=== PATIENT | male | born 1965 | race Caucasian/White ===

== ENCOUNTER 2021-03-19 13:04 | Emergency (ER) | payer MEDICAID ==
[2021-03-19] MEDS ORDERED: Sodium Chloride 0.9% 10 ML Syringe FLUSH PRN (13:35)
[2021-03-19] MEDS ORDERED: Dextrose 5%-0.45% NaCl 1,000 ML IV SCH (13:45)
--- NOTE | 2021-03-19 13:53 | EDM.PDOC ---
ED HPI GENERAL MEDICAL PROBLEM - General Chief Complaint: Drug or Alcohol Abuse Stated Complaint: [facility] Time Seen by Provider: 03/19/21 13:09 Source of Information: Reports: Patient History Limitations: Reports: No Limitations - History of Present Illness INITIAL COMMENTS - FREE TEXT/NARRATIVE: 55-year-old male presents to the emergency department by way of [facility]. Per the patient's report he states he does have a significant history of alcohol abuse. So much so that the local bars and liquor stores will no longer serve him any alcohol. He states he had been sober for about a month when he had some stressful incidents within his family occur. He states he did not have any alcohol so over the course the past 3 nights he has drank 132 ounce bottle o f Listerine each night. He states that during the course of drinking the Listerine he would vomit however continued drinking despite vomiting. He states that last night his last drink of Listerine was around 2 AM and he was up vomiting for several hours after. He does admit to being in and out of alcohol treatment facilities 13 times. He also admits to carrying a diagnosis of anxiety and depression for which he takes clonazepam and Celexa. He states he ran out of these medications a few days ago and did not show up to his scheduled appointment with his primary care provider to have them renewed. He states that today he felt guilty when he woke up and did call poison control and then elected to call the ambulance to transport him here to the hospital. In route to the hospital the patient received 2 mg of Ativan IV due to anxiety and 4 mg of Zofran due to nausea. He also received 1 L of lactated Ringer's wide open. Poison control was called by her nursing staff and states that we need to watch for alcoholic ketoacidosis and they recommend that we check a CMP, INR, and LFTs and hydrate the patient. He will likely need to be monitored in the emergency department till this evening. - Related Data Allergies Allergy/AdvReac Type Severity Reaction Status Date / Time No Known Allergies Allergy Verified 03/19/21 13:15 Home Meds: Home Meds Citalopram Hydrobromide [Celexa] 20 mg PO DAILY 03/19/21 [History] ClonazePAM [KlonoPIN] 1 mg PO Q8H PRN 03/19/21 [History] Past Medical History Psychiatric History: Reports: Addiction, Anxiety, Depression - Infectious Disease History Infectious Disease History: Reports: MRSA Other Infectious Disease History: to hip area due to bump I&D Social & Family History - Tobacco Use Tobacco Use Status *Q: Never Tobacco User - Caffeine Use Caffeine Use: Reports: Soda - Recreational Drug Use Recreational Drug Use: No ED ROS GENERAL - Review of Systems Review Of Systems: Comprehensive ROS is negative, except as noted in HPI. ED EXAM, GENERAL - Physical Exam Exam: See Below Exam Limited By: No Limitations General Appearance: Alert, WD/WN, No Apparent Distress Ears: Normal External Exam, Hearing Grossly Normal Nose: Normal Inspection Throat/Mouth: Normal Inspection, Normal Lips, Normal Voice, No Airway Compromise Head: Atraumatic Neck: Normal Inspection, Supple Respiratory/Chest: No Respiratory Distress, Lungs Clear, Normal Breath Sounds, No Accessory Muscle Use, Chest Non-Tender Cardiovascular: Normal Peripheral Pulses, Regular Rate, Rhythm, No Murmur Peripheral Pulses: 2+: Radial (L), Radial (R) GI/Abdominal: Normal Bowel Sounds, Soft, Non-Tender, No Distention (Male) Exam: Deferred Rectal (Males) Exam: Deferred Back Exam: Normal Inspection, Full Range of Motion Extremities: Normal Inspection, Normal Range of Motion, Non-Tender, No Pedal Edema, Normal Capillary Refill Neurological: Alert, Oriented, Normal Cognition Psychiatric: Normal Affect, Normal Mood Skin Exam: Warm, Dry, Intact, Normal Color, No Rash Lymphatic: No Adenopathy Course - Vital Signs Text/Narrative:: Patient presents to the ER with a 3-day history of drinking 1-32 ounce bottle of Listerine mouthwash daily. Patient denies any suicidal attempt however he states the reason he drank this is because none of the local bars or liquor establishments in his hometown will serve him due to his significant history of alcohol abuse. States he has been sober for about a month this time, with a significant history of remissions and exacerbations, however states he had some stressful family issues come up and decided he needed to drink to cope. Patient states he was up most of the night vomiting last night. When he woke this morning he decided to call poison control and then elected to call the local ambulance service to be transported here to the hospital. Nursing staff has called poison control and they recommend CMP, INR and LFTs, they also recommend hydration and supportive care. I have also ordered CBC, magnesium level, salicylate and acetaminophen level, TSH and an alcohol level and a urine drug screen. Patient has already received a liter of lactated Ringer's in route by local ambulance service. I have ordered a second liter of D5 half-normal saline to run wide open as patient glucose level is likely low. He does report he has not eaten anything for the past 3 days and really only eats 1 meal daily. Patient also reports that he does have a history of seizures and significant hallucinations when detoxing from alcohol so we will monitor for this as well. Last Recorded V/S: Last Vital Signs Temp 97.5 F 03/19/21 13:13 Pulse 106 H 03/19/21 13:13 Resp 20 03/19/21 13:13 BP 121/87 03/19/21 13:13 Pulse Ox 92 L 03/19/21 13:13 - Orders/Labs/Meds Orders: Active Orders 24 hr Category Date Time Status EKG Documentation Completion [RC] STAT Care 03/19/21 13:34 Active DRUG SCREEN, URINE [URCHEM] Stat Lab 03/19/21 13:36 Ordered Dextrose 5%-0.45% NaCl [Dextrose 5%-1/2 NS] 1,000 ml Med 03/19/21 13:45 Active IV ASDIRECTED Sodium Chloride 0.9% [Normal Saline] 1,000 ml Med 03/19/21 15:15 Active IV ASDIRECTED Sodium Chloride 0.9% [Saline Flush] Med 03/19/21 13:35 Active 10 ml FLUSH ASDIRECTED PRN Saline Lock Insert [OM.PC] Stat Oth 03/19/21 13:35 Ordered Medication Orders Dextrose/Sodium Chloride (Dextrose 5%-1/2 Ns) 1,000 mls @ 999 drops/hr IV ASDIRECTED VERO Last Admin: 03/19/21 13:48 Dose: 999 drops/hr Documented by: ROSA Sodium Chloride (Normal Saline) 1,000 mls @ 150 mls/hr IV ASDIRECTED VERO Last Admin: 03/19/21 15:20 Dose: 150 mls/hr Documented by: BIA Sodium Chloride (Sodium Chloride 0.9% 10 Ml Syringe) 10 ml FLUSH ASDIRECTED PRN PRN Reason: Keep Vein Open Last Admin: 03/19/21 13:48 Dose: 10 ml Documented by: ROSA Labs: Laboratory Tests 03/19/21 03/19/21 03/19/21 Range/Units 13:50 13:50 13:50 WBC 6.57 (4.23-9.07) K/mm3 RBC 5.10 (4.63-6.08) M/mm3 Hgb 16.4 (13.7-17.5) gm/dl Hct 47.8 (40.1-51.0) % MCV 93.7 H (79.0-92.2) fl MCH 32.2 (25.7-32.2) pg MCHC 34.3 (32.2-35.5) g/dl RDW Std Deviation 41.4 (35.1-43.9) fL Plt Count 205 (163-337) K/mm3 MPV 10.0 (9.4-12.3) fl Neut % (Auto) 83.7 H (34.0-67.9) % Lymph % (Auto) 9.0 L (21.8-53.1) % Burt % (Auto) 6.8 (5.3-12.2) % Eos % (Auto) 0 L (0.8-7.0) Baso % (Auto) 0.3 (0.1-1.2) % Neut # (Auto) 5.50 H (1.78-5.38) K/mm3 Lymph # (Auto) 0.59 L (1.32-3.57) K/mm3 Burt # (Auto) 0.45 (0.30-0.82) K/mm3 Eos # (Auto) 0.00 L (0.04-0.54) K/mm3 Baso # (Auto) 0.02 (0.01-0.08) K/mm3 Manual Slide Review Normal smear PT 10.0 (9.7-12.0) SECONDS INR 0.93 Sodium 139 (136-145) mEq/L Potassium 4.3 (3.5-5.1) mEq/L Chloride 100 (98-107) mEq/L Carbon Dioxide 26 D (21-32) mEq/L Anion Gap 17.3 H (5-15) BUN 19 H (7-18) mg/dL Creatinine 1.1 (0.7-1.3) mg/dL Est Cr Clr Drug Dosing 80.19 mL/min Estimated GFR (MDRD) > 60 (>60) mL/min BUN/Creatinine Ratio 17.3 (14-18) Glucose 121 H (74-106) mg/dL Calcium 7.8 L (8.5-10.1) mg/dL Magnesium 2.3 (1.8-2.4) mg/dl Total Bilirubin 1.0 (0.2-1.0) mg/dL AST 73 H (15-37) U/L ALT 69 H (16-63) U/L Alkaline Phosphatase 65 (46-116) U/L Total Protein 6.7 (6.4-8.2) g/dl Albumin 3.4 (3.4-5.0) g/dl Globulin 3.3 gm/dL Albumin/Globulin Ratio 1.0 (1-2) TSH 3rd Generation 1.514 (0.358-3.74) uIU/mL Salicylates (2.8-20) mg/dL Acetaminophen 0 L (10-30) ug/mL Ethyl Alcohol 0.07 (0.00) gm% 03/19/21 Range/Units 13:50 WBC (4.23-9.07) K/mm3 RBC (4.63-6.08) M/mm3 Hgb (13.7-17.5) gm/dl Hct (40.1-51.0) % MCV (79.0-92.2) fl MCH (25.7-32.2) pg MCHC (32.2-35.5) g/dl RDW Std Deviation (35.1-43.9) fL Plt Count (163-337) K/mm3 MPV (9.4-12.3) fl Neut % (Auto) (34.0-67.9) % Lymph % (Auto) (21.8-53.1) % Burt % (Auto) (5.3-12.2) % Eos % (Auto) (0.8-7.0) Baso % (Auto) (0.1-1.2) % Neut # (Auto) (1.78-5.38) K/mm3 Lymph # (Auto) (1.32-3.57) K/mm3 Burt # (Auto) (0.30-0.82) K/mm3 Eos # (Auto) (0.04-0.54) K/mm3 Baso # (Auto) (0.01-0.08) K/mm3 Manual Slide Review PT (9.7-12.0) SECONDS INR Sodium (136-145) mEq/L Potassium (3.5-5.1) mEq/L Chloride (98-107) mEq/L Carbon Dioxide (21-32) mEq/L Anion Gap (5-15) BUN (7-18) mg/dL Creatinine (0.7-1.3) mg/dL Est Cr Clr Drug Dosing mL/min Estimated GFR (MDRD) (>60) mL/min BUN/Creatinine Ratio (14-18) Glucose (74-106) mg/dL Calcium (8.5-10.1) mg/dL Magnesium (1.8-2.4) mg/dl Total Bilirubin (0.2-1.0) mg/dL AST (15-37) U/L ALT (16-63) U/L Alkaline Phosphatase (46-116) U/L Total Protein (6.4-8.2) g/dl Albumin (3.4-5.0) g/dl Globulin gm/dL Albumin/Globulin Ratio (1-2) TSH 3rd Generation (0.358-3.74) uIU/mL Salicylates 0.1 L (2.8-20) mg/dL Acetaminophen (10-30) ug/mL Ethyl Alcohol (0.00) gm% Meds: Medications Generic Name Dose Route Start Last Admin Trade Name Freq PRN Reason Stop Dose Admin Dextrose/Sodium Chloride 1,000 mls @ 999 drops/hr 03/19/21 13:45 03/19/21 13:48 Dextrose 5%-1/2 Ns IV 999 drops/hr ASDIRECTED VERO Administration Sodium Chloride 1,000 mls @ 150 mls/hr 03/19/21 15:15 03/19/21 15:20 Normal Saline IV 150 mls/hr ASDIRECTED VERO Administration Sodium Chloride 10 ml 03/19/21 13:35 03/19/21 13:48 Sodium Chloride 0.9% 10 Ml Syringe FLUSH 10 ml ASDIRECTED PRN Administration Keep Vein Open Discontinued Medications Generic Name Dose Route Start Last Admin Trade Name Freq PRN Reason Stop Dose Admin Metoclopramide HCl 5 mg 03/19/21 15:08 03/19/21 15:21 Metoclopramide 10 Mg/2 Ml Sdv IVPUSH 03/19/21 15:09 5 mg ONETIME ONE Administration - Re-Assessments/Exams Free Text/Narrative Re-Assessment/Exam: 03/19/21 14:54 Hematology is essentially unremarkable, coagulation reveals a pro time of 10.0, INR 0.93, chemistry reveals a sodium of 139, potassium 4.3, chloride 100, carbon dioxide 26, anion gap 17.3, BUN 19, creatinine 1.1, glucose 121, calcium 7.8, magnesium 2.3, AST 73, ALT 69, TSH 1.514, toxicology reveals a salicylate level of 0.1, acetaminophen 0, ethyl alcohol 0.07 03/19/21 15:26 Nursing staff reports that the patient is nauseated and vomiting. I have ordered for him to receive a dose of Reglan 5 mg by IV. I have also ordered another liter of IV fluid. This has been changed to normal saline to run at 150 mL's per hour. 03/19/21 16:46 The patient states that he is feeling better and he is wanting to go home. Nursing staff did speak with poison control about an hour ago and they state that it is okay to allow the patient to be discharged to home once he is feeling better. They do not recommend any further lab evaluation or treatments. I will allow the patient to be discharged home with recommendations he follow-up with his primary care provider and seek counseling. We will also give him a referral and the phone number to the [facility]. Departure - Departure Time of Disposition: 16:47 Disposition: Home, Self-Care 01 Condition: Good Clinical Impression: Encounter for observation for suspected toxic effect from ingested substance - Discharge Information Instructions: Chemical Dependency, Finding Treatment for Addiction Referrals: Jacqueline Rosenbaum [employer] [Primary Care Provider] - Forms: ED Department Discharge Additional Instructions: You were seen in the emergency department today after drinking Listerine over the course the past 3 days. Poison control was consulted and labs were completed. He received IV fluids and nausea medications. You need to stop drinking alcohol. Do not drink Listerine. Strongly recommend you consult [facility] for assistance in stopping drinking alcohol. Their phone number is [phone]. I also strongly recommend you seek a counselor to assist you with your depression and alcohol ingestion. Follow-up with your primary care provider this week. Sepsis Event Note (ED) - Evaluation Sepsis Screening Result: No Definite Risk - Focused Exam Vital Signs: Vital Signs Temp Pulse Resp BP Pulse Ox 03/19/21 13:13 97.5 F 106 H 20 121/87 92 L - My Orders Last 24 Hours: My Active Orders 03/19/21 13:34 EKG Documentation Completion [RC] STAT 03/19/21 13:35 Sodium Chloride 0.9% [Saline Flush] 10 ml FLUSH ASDIRECTED PRN Saline Lock Insert [OM.PC] Stat 03/19/21 13:36 DRUG SCREEN, URINE [URCHEM] Stat 03/19/21 13:45 Dextrose 5%-0.45% NaCl [Dextrose 5%-1/2 NS] 1,000 ml IV ASDIRECTED 03/19/21 15:15 Sodium Chloride 0.9% [Normal Saline] 1,000 ml IV ASDIRECTED - Assessment/Plan Last 24 Hours: My Active Orders 03/19/21 13:34 EKG Documentation Completion [RC] STAT 03/19/21 13:35 Sodium Chloride 0.9% [Saline Flush] 10 ml FLUSH ASDIRECTED PRN Saline Lock Insert [OM.PC] Stat 03/19/21 13:36 DRUG SCREEN, URINE [URCHEM] Stat 03/19/21 13:45 Dextrose 5%-0.45% NaCl [Dextrose 5%-1/2 NS] 1,000 ml IV ASDIRECTED 03/19/21 15:15 Sodium Chloride 0.9% [Normal Saline] 1,000 ml IV ASDIRECTED
[2021-03-19 14:30] LABS: ACETAMINOPHEN 0 ug/mL (10-30)
[2021-03-19] MEDS ORDERED: Metoclopramide 10 MG/2 ML SDV IVPUSH ONE (15:08)
[2021-03-19] MEDS ORDERED: Sodium Chloride 0.9% 1,000 ML IV SCH (15:15)
--- NOTE | 2021-03-19 22:14 | PCM.EKG ---
#1 Interpretation EKG Date: 03/19/21 Time: 14:12 Rhythm: NSR Rate (Beats/Min): 95 [place]: Normal P-Wave: Present QRS: Normal ST-T: Normal QT: Normal EKG Interpretation Comments: Per Dr. Pedro interpretation: NSR rate 95; small Q waves lead III; prolonged QT interval
== END 2021-03-19 17:00 | disposition home or self-care (01) ==
LOC: JD.ED 13:04 → SUPCPDRO 13:04 → JD.ED 17:00
DX: Z03.6 Encounter for observation for suspected toxic effect from ingested substance ruled out (principal)
CPT/HCPCS: 36415; 80053; 80143; 80179; 80307; 83735; 84443; 85025; 85610; 93005; 96374; 99284; J2765; J7030; J7042; 99283

== ENCOUNTER → 2022-07-25 | Day surgery (SDC) | payer BC, MEDICAID ==
[~2022-07-25] MED LIST: Lactated Ringers 1,000 ML IV SCH; Lidocaine 1% 2 ML ONE; Lidocaine 1%/Sod Bicarbonate in NS 8.4% 1 ML Syringe IDERM PRN; Midazolam 1 MG/ML 2 ML SDV ONE; Ondansetron 4 MG/2 ML SDV IVPUSH PRN; Propofol 200 MG/20 ML SDV ONE; Sodium Chloride 0.9% 10 ML Syringe FLUSH PRN; Sodium Chloride 0.9% 10 ML Syringe FLUSH SCH; fentaNYL 100 MCG/2 ML SDV ONE
== END | disposition home or self-care (01) ==
LOC: JD.SDS 11:27
PROVIDERS: ATTEND Surgery
DX: D12.0 Benign neoplasm of cecum (principal); K22.70 Barrett's esophagus without dysplasia; K57.30 Diverticulosis of large intestine without perforation or abscess without bleeding; K64.8 Other hemorrhoids; K29.70 Gastritis, unspecified, without bleeding; K20.90 Esophagitis, unspecified without bleeding; F17.220 Nicotine dependence, chewing tobacco, uncomplicated; F41.9 Anxiety disorder, unspecified; Z79.899 Other long term (current) drug therapy
CPT/HCPCS: 43239; 45380; 45381; J2250; J2704; J3010; J7120

== ENCOUNTER 2022-09-02 08:30 | Emergency (ER) | payer BC, MEDICAID ==
[2022-09-02] MEDS ORDERED: LORazepam 2 MG/ML SDV IVPUSH ONE ×3 (08:54→15:36)
[2022-09-02] MEDS ORDERED: Dextrose 5%-Lactated Ringers 1,000 ML IV SCH (09:00)
[2022-09-02] MEDS ORDERED: Thiamine 200 MG/2 ML MDV IVPUSH ONE (09:19)
[2022-09-02] MEDS ORDERED: Pantoprazole 40 MG Vial IVPUSH ONE (09:46)
[2022-09-02 10:20] LABS: ESTIMATED GFR 80 mL/min (>60)
[2022-09-02] MEDS ORDERED: Lactated Ringers 1,000 ML IV ONE ×3 (11:16→15:26)
[2022-09-02] MEDS ORDERED: LORazepam 2 MG/ML SDV ONE (12:58)
[2022-09-02] MEDS ORDERED: Metoclopramide 10 MG/2 ML SDV IVPUSH ONE ×2 (15:36→18:58)
[2022-09-02] MEDS ORDERED: Sodium Chloride 0.9% 1,000 ML IV SCH (18:30)
[2022-09-02] MEDS ORDERED: diphenhydrAMINE 50 MG/ML SDV IVPUSH ONE (18:59)
[2022-09-02] MEDS ORDERED: LORazepam 2 MG/ML SDV IVPUSH STA ×3 (20:28→22:04)
[2022-09-03] MEDS ORDERED: Sodium Chloride 0.9% 1,000 ML IV SCH (03:00)
[2022-09-03] MEDS ORDERED: LORazepam 2 MG/ML SDV IVPUSH ONE (09:37)
[2022-09-03] MEDS ORDERED: LORazepam 1 MG Tab PO ONE (14:35)
[2022-09-03] MEDS ORDERED: LORazepam 1 MG Tab ONE (14:37)
== END 2022-09-03 14:45 | disposition home or self-care (01) ==
LOC: JD.ED 08:30 → SUPCPDRO 08:30 → JD.ED 09-03 14:45
DX: F10.231 Alcohol dependence with withdrawal delirium (principal); I42.9 Cardiomyopathy, unspecified; Z88.8 Allergy status to other drugs, medicaments and biological substances; Z79.899 Other long term (current) drug therapy
CPT/HCPCS: 36415; 51701; 70450; 80053; 80143; 80179; 80306; 80307; 81001; 82009; 82553; 82977; 83605; 83690; 83735; 83880; 84484; 85025; 85610; 85730; 86140; 93005; 93306; 96361; 96365; 96375; 96376; 99285; A9270; C9113; J1200; J2060; J2765; J3411; J3475; J7030; J7120; J7121

== ENCOUNTER 2022-10-01 16:08 | Emergency (ER) | payer BC, MEDICAID ==
[2022-10-01] MEDS ORDERED: Sodium Chloride 0.9% 10 ML Syringe FLUSH PRN (19:11)
[2022-10-01] MEDS ORDERED: Sodium Chloride 0.9% 1,000 ML IV SCH ×2 (19:12→20:45)
[2022-10-01] MEDS ORDERED: LORazepam 2 MG/ML SDV IVPUSH ONE (19:13)
[2022-10-01] MEDS ORDERED: traZODone 50 MG Tab PO ONE (19:51)
[2022-10-01 20:25] LABS: CORONAVIRUS COVID-19 NAA NEGATIVE (NEGATIVE)
[2022-10-01] MEDS: LORazepam 2 MG/ML SDV IVPUSH PRN (23:42)
[2022-10-02] MEDS ORDERED: Sodium Chloride 0.9% 1,000 ML IV SCH (02:00)
[2022-10-02] MEDS: LORazepam 2 MG/ML SDV IVPUSH PRN ×2 (03:52→08:30)
== END 2022-10-02 09:53 | disposition other institution (70) ==
LOC: JD.ED 16:08
DX: F10.10 Alcohol abuse, uncomplicated (principal); Z88.8 Allergy status to other drugs, medicaments and biological substances; Z79.899 Other long term (current) drug therapy; Z20.822 Contact with and (suspected) exposure to COVID-19
CPT/HCPCS: 0240U; 36415; 80053; 80306; 80307; 85025; 96374; 96376; 99284; J2060; J3490; J7030

== ENCOUNTER 2023-01-14 20:58 | Emergency (ER) | payer BC, MEDICAID ==
[2023-01-14] MEDS ORDERED: diphenhydrAMINE 50 MG/ML SDV IVPUSH ONE (21:26)
[2023-01-14] MEDS ORDERED: Metoclopramide 10 MG/2 ML SDV IVPUSH ONE (21:26)
[2023-01-14] MEDS ORDERED: Dextrose 5%-Lactated Ringers 1,000 ML IV SCH (21:30)
[2023-01-14 22:38] LABS: ESTIMATED GFR 105 mL/min (>60)
== END 2023-01-14 23:25 | disposition home or self-care (01) ==
LOC: JD.ED 20:58
DX: F10.920 Alcohol use, unspecified with intoxication, uncomplicated (principal); Z88.8 Allergy status to other drugs, medicaments and biological substances; Z79.899 Other long term (current) drug therapy; Y90.1 Blood alcohol level of 20-39 mg/100 ml
CPT/HCPCS: 36415; 71045; 71045-26; 80053; 80307; 82009; 83605; 83690; 83735; 83880; 84484; 85025; 85610; 85730; 86140; 93005; 93010; 96361; 96374; 96375; 99283; 99284-25; J1200; J2765; J7121

== ENCOUNTER 2023-12-13 16:04 | Emergency (ER) | payer BC, MEDICAID ==
[2023-12-13 17:04] LABS: BASOPHILS ABSOLUTE AUTO 0.1 K/mm3 (0.0-0.2); BASOPHILS PERCENT AUTO 1.8 % (0.0-1.0); EOSINOPHILS ABSOLUTE AUTO 0.2 K/mm3 (0.0-0.4); EOSINOPHILS PERCENT AUTO 3.6 % (0.0-6.0); HEMATOCRIT 42.1 % (42.0-52.0); HEMOGLOBIN 14.5 gm/dl (14.0-18.0); IMMATURE GRAN ABSOLUTE AUTO 0.02 K/mm3 (0.00-0.05); IMMATURE GRAN PERCENT AUTO 0.5 % (0.0-0.4); LYMPHOCYTES ABSOLUTE AUTO 0.9 K/mm3 (1.0-4.8); MEAN CORPUSCULAR HGB CONC 34.4 g/dl (32.0-36.0); MEAN CORPUSCULAR VOLUME 95.7 fl (83.0-99.0); MONOCYTES ABSOLUTE AUTO 0.3 K/mm3 (0.0-0.8); MONOCYTES PERCENT AUTO 6.2 % (0.0-8.0); NEUTROPHILS ABSOLUTE AUTO 2.9 K/mm3 (1.8-7.7); NEUTROPHILS PERCENT AUTO 66.9 % (41.0-71.0); PLATELET COUNT,PLT 249 K/mm3 (150-400); WHITE BLOOD CELL COUNT,WBC 4.39 K/mm3 (3.9-11.3)
[2023-12-13 17:34] LABS: A/G RATIO 1.1 (1-2); ALBUMIN 3.5 g/dl (3.4-5.0); ANION GAP 18.7 (5-15); BILIRUBIN TOTAL 0.4 mg/dL (0.2-1.0); BUN/CREATININE RATIO 11.8 (14-18); CALCIUM 7.9 mg/dL (8.5-10.1); CREATININE 1.1 mg/dL (0.7-1.3); EST CRCL DRUG DOSING (CG) 77.42 mL/min; ETHANOL BLOOD MEDICAL 0.29 gm% (0.00); POTASSIUM,K 3.7 mEq/L (3.5-5.1); PROTEIN TOTAL,TP 6.7 g/dl (6.4-8.2); TSH 1.193 uIU/mL (0.358-3.74)
[2023-12-13 18:39] LABS: BARBITURATE SCREEN,URINE NEGATIVE (CUTOFF=200); BENZODIAZEPINES SCREEN,URINE NEGATIVE (CUTOFF=150); BUPRENORPHINE SCREEN,URINE NEGATIVE (CUTOFF=10); METHADONE SCREEN, URINE NEGATIVE (CUT0FF=200); METHAMPHETAMINES SCREEN, URINE NEGATIVE (CUTOFF=500); OXYCODONE SCREEN,URINE NEGATIVE (CUT0FF=100); THC SCREEN,URINE 20 NG/ML PRESUMPTIVE POSITIVE (CUTOFF=50)
[2023-12-13 18:45] LABS: AMPHETAMINES SCREEN, URINE NEGATIVE (CUTOFF=500)
== END 2023-12-13 20:35 ==
LOC: JD.ED 16:04
DX: F10.920 Alcohol use, unspecified with intoxication, uncomplicated (principal); F17.210 Nicotine dependence, cigarettes, uncomplicated; Z88.8 Allergy status to other drugs, medicaments and biological substances
CPT/HCPCS: 36415; 80053; 80143; 80179; 80306; 80307; 84443; 85025; 99285

== ENCOUNTER 2024-05-26 10:37 | Emergency (ER) | payer BC, MEDICAID ==
[2024-05-26] MEDS ORDERED: Sodium Chloride 0.9% 10 ML Syringe FLUSH PRN (10:49)
[2024-05-26 11:08] LABS: BASOPHILS PERCENT AUTO 0.9 % (0.0-1.0); EOSINOPHILS ABSOLUTE AUTO 0.2 K/mm3 (0.0-0.4); EOSINOPHILS PERCENT AUTO 3.4 % (0.0-6.0); HEMATOCRIT 50.7 % (42.0-52.0); HEMOGLOBIN 17.7 gm/dl (14.0-18.0); IMMATURE GRAN ABSOLUTE AUTO 0.01 K/mm3 (0.00-0.05); IMMATURE GRAN PERCENT AUTO 0.2 % (0.0-0.4); LYMPHOCYTES ABSOLUTE AUTO 1.6 K/mm3 (1.0-4.8); LYMPHOCYTES PERCENT AUTO 33.8 % (24.0-44.0); MEAN CORPUSCULAR HEMOGLOBIN 32.3 pg (28.0-32.0); MEAN CORPUSCULAR HGB CONC 34.9 g/dl (32.0-36.0); MEAN CORPUSCULAR VOLUME 92.5 fl (83.0-99.0); MONOCYTES ABSOLUTE AUTO 0.4 K/mm3 (0.0-0.8); MONOCYTES PERCENT AUTO 7.5 % (0.0-8.0); NEUTROPHILS ABSOLUTE AUTO 2.5 K/mm3 (1.8-7.7); NEUTROPHILS PERCENT AUTO 54.2 % (41.0-71.0); PLATELET COUNT,PLT 241 K/mm3 (150-400); RED BLOOD CELL COUNT 5.48 M/mm3 (4.52-5.90); WHITE BLOOD CELL COUNT,WBC 4.64 K/mm3 (3.9-11.3)
[2024-05-26 11:36] LABS: A/G RATIO 1.1 (1-2); ALBUMIN 3.9 g/dl (3.4-5.0); BILIRUBIN TOTAL 0.6 mg/dL (0.2-1.0); BUN/CREATININE RATIO 14.5 (14-18); C-REACTIVE PROTEIN 0.17 mg/dL (<0.30); CALCIUM 8.7 mg/dL (8.5-10.1); CREATININE 1.1 mg/dL (0.7-1.3); EST CRCL DRUG DOSING (CG) 77.42 mL/min; PROTEIN TOTAL,TP 7.5 g/dl (6.4-8.2)
[2024-05-26 11:43] LABS: TSH 1.377 uIU/mL (0.358-3.74)
== END 2024-05-26 12:32 | disposition home or self-care (01) ==
LOC: JD.ED 10:37
DX: K92.1 Melena (principal); Z79.899 Other long term (current) drug therapy
CPT/HCPCS: 36415; 80053; 84443; 85025; 86140; 99283; 99285

== ENCOUNTER 2025-06-08 20:59 | Emergency (ER) | payer SELFPAY | END 2025-06-08 21:24 | LOC: JD.ED 20:59 | DX: Z02.89 Encounter for other administrative examinations (principal); Z79.899 Other long term (current) drug therapy | CPT/HCPCS: 99282; 99283 ==

== ENCOUNTER 2025-07-25 20:49 | Emergency (ER) | payer BC, MEDICAID ==
[2025-07-25] MEDS: Ondansetron 4 MG/2 ML SDV IVPUSH ONE ×2 (21:11→22:07)
[2025-07-25 21:13] LABS: BASOPHILS ABSOLUTE AUTO 0.0 K/mm3 (0.0-0.2); BASOPHILS PERCENT AUTO 0.3 % (0.0-1.0); EOSINOPHILS ABSOLUTE AUTO 0.0 K/mm3 (0.0-0.4); EOSINOPHILS PERCENT AUTO 0.0 % (0.0-6.0); IMMATURE GRAN ABSOLUTE AUTO 0.05 K/mm3 (0.00-0.05); IMMATURE GRAN PERCENT AUTO 0.4 % (0.0-0.4); LYMPHOCYTES ABSOLUTE AUTO 0.3 K/mm3 (1.0-4.8); LYMPHOCYTES PERCENT AUTO 2.8 % (24.0-44.0); MEAN PLATELET VOLUME 9.7 fl (9.4-12.4); MONOCYTES ABSOLUTE AUTO 0.3 K/mm3 (0.0-0.8); MONOCYTES PERCENT AUTO 2.2 % (0.0-8.0); NEUTROPHILS ABSOLUTE AUTO 10.5 K/mm3 (1.8-7.7); NEUTROPHILS PERCENT AUTO 94.3 % (41.0-71.0); NRBC ABSOLUTE 0.00 (0.00-0.02); NRBC PERCENT 0.0 % (0.0-0.2); PLATELET COUNT,PLT 307 K/mm3 (150-400); RED BLOOD CELL COUNT 4.61 M/mm3 (4.52-5.90); WHITE BLOOD CELL COUNT,WBC 11.14 K/mm3 (3.9-11.3)
[2025-07-25 21:38] LABS: A/G RATIO 1.4 (1-2); ALANINE AMINOTRANSFERASE,ALT 92.0 U/L (16-63); ASPARTATE AMNIOTRANSFERASE,AST 73.0 U/L (15-37); BILIRUBIN TOTAL 0.7 mg/dL (0.2-1.0); BLOOD UREA NITROGEN,BUN 25.0 mg/dL (7-18); CARBON DIOXIDE,CO2 14.0 mEq/L (21-32); CHLORIDE,CL 93.0 mEq/L (98-107); CREATINE KINASE,CK 133.0 U/L (39-308); CREATININE 1.7 mg/dL (0.7-1.3); EST CRCL DRUG DOSING (CG) 49.5 mL/min; ESTIMATED GFR 46.0 mL/min (>60); ETHANOL BLOOD MEDICAL 0.08 gm% (0.00); GLUCOSE RANDOM 157.0 mg/dL (70-99); POTASSIUM,K 4.3 mEq/L (3.5-5.1); PROTEIN TOTAL,TP 7.7 g/dl (6.4-8.2); SODIUM,NA 138.0 mEq/L (136-145)
[2025-07-25 21:41] LABS: TROPONIN I HIGH SENSITIVITY 79.0 pg/mL (<=76)
[2025-07-25 21:42] LABS: INR 0.95
[2025-07-25 21:45] LABS: D-DIMER QUANTITATIVE 1.56 mg/L (0.19-0.50)
[2025-07-25] MEDS: Sodium Chloride 0.9% 10 ML Syringe FLUSH PRN (22:19)
[2025-07-25] MEDS: Iopamidol 755 Mg/ML 100 ML Bottle IVPUSH ONE (22:19)
[2025-07-25] MEDS: Alum Hydrox/Mag Hydrox/Simeth 30 ML, Lidocaine 2% 15 ML PO ONE (22:59)
== END 2025-07-26 00:12 | disposition home or self-care (01) ==
LOC: JD.ED 20:49
DX: R07.9 Chest pain, unspecified (principal); F41.9 Anxiety disorder, unspecified; F10.10 Alcohol abuse, uncomplicated; Y90.9 Presence of alcohol in blood, level not specified; Z79.899 Other long term (current) drug therapy; I42.9 Cardiomyopathy, unspecified; X58.XXXA Exposure to other specified factors, initial encounter
CPT/HCPCS: 36415; 71045; 71275; 80053; 80307; 82550; 83690; 83735; 83880; 84484; 85025; 85379; 85610; 93005; 96361; 96374; 96376; 99285; J2405; J3490; J7030; Q9967; 93010; 99284; A9270-GY